=== PATIENT | male | born 1965 | race Caucasian/White ===

== ENCOUNTER → 2017-07-22 | Outpatient (CLI) | payer BC | LOC: GMAL 11:08 | PROVIDERS: ATTEND Family Medicine | DX: Z00.01 Encounter for general adult medical examination with abnormal findings (principal); E53.8 Deficiency of other specified B group vitamins; R53.82 Chronic fatigue, unspecified ==

== ENCOUNTER → 2018-08-02 | Outpatient (CLI) | payer BC | LOC: LAB.O 10:19 | PROVIDERS: ATTEND Family Medicine | DX: Z01.810 Encounter for preprocedural cardiovascular examination (principal); Z01.811 Encounter for preprocedural respiratory examination; Z01.818 Encounter for other preprocedural examination; N39.0 Urinary tract infection, site not specified ==

== ENCOUNTER → 2019-03-08 | Outpatient (CLI) | payer BC | LOC: LAB.NP 11:55 | PROVIDERS: ATTEND Family Medicine | DX: Z20.828 Contact with and (suspected) exposure to other viral communicable diseases (principal) ==

== ENCOUNTER → 2019-06-20 | Outpatient (CLI) | payer BC ==
--- NOTE | 2019-06-20 18:35 | CT ---
EXAM DESCRIPTION: Head w/wo Contrast CLINICAL HISTORY: Headache COMPARISON: None available TECHNIQUE: CT brain is performed prior to and following IV administration of routine adult dose of nonionic iodinated IV contrast. FINDINGS: Ventricles and sulci are unremarkable on the precontrast images. There is no hemorrhage or mass. There are no white matter abnormalities detected on the precontrast images. The calvarium is unremarkable. The visualized mastoid air cells and tympanic cavities are clear. Patchy opacification of ethmoid sinus air cells. After IV contrast, repeat axial CT scanning through the brain reveals normal enhancement of vessels at the [place]. Normal enhancement of peripheral branch vessels of the anterior, middle and posterior cerebral arterial distributions. Normal dural sinus enhancement. There is normal watson-white matter differentiation. No abnormal brain parenchymal enhancement to suggest disruption of the blood brain barrier. No enhancing intracranial mass. IMPRESSION: No diagnostic abnormality is identified on pre and postcontrast CT images of the brain. This exam was performed according to our departmental dose-optimization program, which includes automated exposure control, adjustment of the mA and/or kV according to patient size and/or use of iterative reconstruction technique. Electronically signed by: Alex Goldberg MD 06/20/2019 6:33 PM CDT
--- NOTE | 2019-06-20 18:41 | CT ---
EXAM DESCRIPTION: Sinuses w/wo Contrast CLINICAL HISTORY: Headache COMPARISON: None Available. TECHNIQUE: CT of the sinuses is performed with direct axial imaging technique. Multiplanar reformatted images are reviewed post along with source images. Routine adult dose of nonionic iodinated IV contrast was given for the postcontrast images. FINDINGS: Normal orbital contents. No retrobulbar mass or hematoma. Normal appearance of the extraocular muscles and optic nerves. Lower portions of the brain are unremarkable. No soft tissue mass. Normal symmetrical parotid glands. Normal fatty parapharyngeal spaces. Bone window images reveal patchy opacification of ethmoid air cells. No fluid levels are seen in the maxillary sinuses, sphenoid sinus or frontal sinus air cells. No mucosal thickening in these areas although there is patchy mucosal thickening in the ethmoid air cells. Intact lamina papyracea. Normal aeration of tympanic cavities, mastoid air cells and external auditory canals. Normal appearance of the cribriform plate. Olfactory fossa on the right measures 8 mm and on the left the depth is 7 mm, Keros type III. No aeration of the anterior clinoids. No [place] cells pneumatization. Clear ostiomeatal units. Kerri bullosa of the middle turbinates noted bilaterally with narrowing of the left more than right frontal ethmoidal recesses. No anterior ethmoidal arterial exposure on the right. On the left there may be minimal exposure. No evidence of old medial or inferior orbital blowout fracture. Sagittal images show normal sella. [place]ellar pneumatization pattern of the sphenoid sinus. Postcontrast images show no evidence of soft tissue mass. Normal enhancement of vessels. No enhancing lesion of the paranasal sinuses or orbits. IMPRESSION: Patchy mucosal thickening of the ethmoid air cells. Other paranasal sinuses are clear. This exam was performed according to our departmental dose-optimization program, which includes automated exposure control, adjustment of the mA and/or kV according to patient size and/or use of iterative reconstruction technique. Electronically signed by: Alex Goldberg MD 06/20/2019 6:40 PM CDT
== END ==
LOC: CT 13:59
PROVIDERS: ATTEND Family Medicine
DX: R51 Headache (principal); J01.80 Other acute sinusitis; H53.8 Other visual disturbances

== ENCOUNTER → 2020-10-12 | Outpatient (CLI) | payer BC | LOC: GMAL 10:59 | PROVIDERS: ATTEND Family Medicine | DX: E53.8 Deficiency of other specified B group vitamins (principal); R97.20 Elevated prostate specific antigen [PSA]; R53.83 Other fatigue; E55.9 Vitamin D deficiency, unspecified ==